=== PATIENT | female | born 1985 | race Caucasian/White ===

== ENCOUNTER 2023-09-18 16:00 | Outpatient (CLI) | payer BC | END 2023-09-18 16:01 | disposition home or self-care (01) | LOC: SLEEPLAB 16:00 | PROVIDERS: ATTEND Family Medicine | DX: G47.33 Obstructive sleep apnea (adult) (pediatric) (principal); R53.83 Other fatigue; R09.89 Other specified symptoms and signs involving the circulatory and respiratory systems; F41.8 Other specified anxiety disorders; E66.9 Obesity, unspecified; G47.00 Insomnia, unspecified | CPT/HCPCS: 95800 ==